=== PATIENT | female | born 1995 | race Caucasian/White ===

== ENCOUNTER 2019-05-06 10:04 | Emergency (ER) | payer OTHER ==
[2019-05-06 10:11] VITALS: BP 121/86; PULSE 91; TEMP 99; BMI 35.4
--- NOTE | 2019-05-06 10:41 | PDOC ---
History of Present Illness - General Chief Complaint: Pain Stated Complaint: LT LEG PAIN Past History - Past Medical History Allergies/Adverse Reactions: Allergies Allergy/AdvReac Type Severity Reaction Status Date / Time No Known Allergies Allergy Verified 05/06/19 10:10 Home Medications: Ambulatory Orders NK [No Known Home Medication] 05/06/19 Asthma: No Cancer: No Cardiac Disorders: No COPD: No Diabetes: Yes (gestational diabetes diet control) HTN: No Seizures: No Thyroid Disease: No - Psycho Social/Smoking Cessation Hx Smoking History: Never smoked Have you smoked in the past 12 months: No Hx Alcohol Use: No Drug/Substance Use Hx: No Hx Substance Use Treatment: No *Physical Exam - Vital Signs Last Vital Signs Temp Pulse Resp BP Pulse Ox 99.0 F 91 H 18 121/86 99 05/06/19 10:08 05/06/19 10:08 05/06/19 10:08 05/06/19 10:08 05/06/19 10:08 Discharge - Follow up/Referral Referrals: Beth Pierre MD [Primary Care Provider] - - Patient Discharge Instructions - Post Discharge Activity
--- NOTE | 2019-05-06 11:41 | PDOC ---
History of Present Illness - General Chief Complaint: Pain Stated Complaint: LT LEG PAIN History Source: Patient Exam Limitations: No Limitations - History of Present Illness Initial Comments: 05/06/19 13:27 HPI: 23-year-old female who is approximately 8-1/2 months with her second child is complaining of some left leg pain. She states it started yesterday. She did not have this with her first . She did not have any recent trauma. She said it was better yesterday and today became worse. Chief Compliant: Left leg pain Pain location: Left leg pain from the groin down Duration: Modifying factors: Quality: Radiating: Severity: Time: PMH: Denies FH: Pt has not recently traveled outside the country in the last 30 days. Pt has not been in contact with people who have traveled out of the country, in contact with people who have been ill with fever, n, v, d. SH: smoking use: NONE illicit drug use: NONE alcohol use: NONE employment/educational status: sexual history:current PSH: Denies Past History - Past Medical History Allergies/Adverse Reactions: Allergies Allergy/AdvReac Type Severity Reaction Status Date / Time No Known Allergies Allergy Verified 05/06/19 10:10 Home Medications: Ambulatory Orders Vitamins (Sjr) - 1 tab PO DAILY 05/06/19 Asthma: No Cancer: No Cardiac Disorders: No COPD: No Diabetes: Yes (gestational diabetes diet control) HTN: No Seizures: No Thyroid Disease: No - Psycho Social/Smoking Cessation Hx Smoking History: Never smoked Have you smoked in the past 12 months: No Hx Alcohol Use: No Drug/Substance Use Hx: No Hx Substance Use Treatment: No Review of Systems - Review of Systems Able to Perform ROS?: Yes Comments:: 05/06/19 13:28 General statement: Left leg pain started yesterday Hematology: neg history of bleeding/blood thinners Skin: Neg for lesions, rash, bruising. HEENT: Neg symptoms Respiratory: Neg SOB or difficulty in breathing Cardiac: Neg chest pain GI: Neg pain, n/v : Neg problems on voiding MS: Neg for joint pain/stiffness, + edema bilateral lower edema Neuro: Neg for LOC, weakness, Endocrine: Neg for excess thirst/hunger, cold/heat intolerance, excess sweating Allergies: Neg for allergies *Physical Exam - Vital Signs Last Vital Signs Temp Pulse Resp BP Pulse Ox 99.0 F 91 H 18 121/86 99 05/06/19 10:08 05/06/19 10:08 05/06/19 10:08 05/06/19 10:08 05/06/19 10:08 - Physical Exam Comments: 05/06/19 13:29 General Appearance: This well appearing 23-year-old female V/S: hemodynamically stable, afebrile Skin: WNL of pt's skin color, no signs of pallor, mottling, cyanosis Head:symmetrical Eyes: EOM's intact, PERRLA Ears: denies pain Nose: patent Throat: lips, teeth, gums, tongue, buccal mucos pink and moist Lungs: Chest symmetry equal. Cap refill <3 seconds. Lung sounds clear Cardiac: PMI at R 4MCL space, pos S1 and S2, regular rate. Abdomen: nontender : Not observed Muscularskeletal: Gait steady, ambulated in to ER, no edema +PMS with complaint of right groin pain without any obvious deformity Neuro: AAOx3, cognitively intact, speech clear and appropriate. ED Treatment Course - RADIOLOGY Radiology Studies Ordered: Category Date Time Status DUPLEX VASCUL US-1 LEG [US] Stat Ultrasound 05/06/19 10:41 Completed Medical Decision Making - Medical Decision Making 05/06/19 13:35 Patient was seen and examined. Patient is not showing any signs of calf pain. Duplex is negative for any DVT. She did ambulate in here although she is sitting in a wheelchair at this time. She denies having any of the symptoms her last . I have suggested that she follows back up with her TAP AND DIE MAKER TECHNICIAN in the morning. This is probably due to a ligamentous strain from her . Discharge - Discharge Information Problems reviewed: Yes Clinical Impression/Diagnosis: Leg swelling in Qualifiers: Trimester: third trimester Qualified Code(s): O12.03 - Gestational edema, third trimester Condition: Fair Disposition: HOME - Admission No - Follow up/Referral Referrals: Beth Pierre MD [Primary Care Provider] - - Patient Discharge Instructions Additional Instructions: Discharge instruction -leg swelling and pain with third trimester -elevate -ice -call your FUNERAL LOCATION MANAGER tomorrow -tylenol - Post Discharge Activity
== END 2019-05-06 11:51 | disposition home or self-care (01) ==
LOC: JERFT 10:04
DX: O26.893 Other specified pregnancy related conditions, third trimester (principal); O12.03 Gestational edema, third trimester; O24.410 Gestational diabetes mellitus in pregnancy, diet controlled; Z3A.33 33 weeks gestation of pregnancy
CPT/HCPCS: 93971-TC; 99281-25

== ENCOUNTER 2019-06-05 08:50 | Inpatient (IN) | payer OTHER ==
[2019-06-05 10:27] LABS: RETICULOCYTES 2.64 % (0.5-1.5)
[2019-06-05] MEDS ORDERED: CITRIC ACID/SODIUM CITRATE 30 ML UNIT-DOSE CUP PO ONE (10:37)
--- NOTE | 2019-06-05 10:43 | HP ---
Past Medical History - Primary Care Physician PCP:: Bam Berman - Admission Chief Complaint: 38 weeks, PIH, previous c/s , request of repeat c/s History of Present Illness: 23 yo f g 2 p1001 38 weeks, with one previous c/s , elevated BP with proteinuria admitted for repeat c/s, risks associated with repeat c/s discussed , no headache, no blurred vision . BP 140/88 History Source: Patient Limitations to Obtaining History: No Limitations - Past Medical History Gastrointestinal: Yes: Constipation. No: GERD ...: 2 ...Para: 1 ...EDC by Charis: 06/19/19 Heme/Onc: Yes: Anemia Endocrine: Yes: Other (h/o GDM on diet control). No: Diabetes Mellitus, Hyperthyroidism, Hypothyroidism - Past Surgical History Past Surgical History: Yes: None, Hx Myomectomy: No Hx Transabdominal Cerclage: No - Smoking History Smoking history: Never smoked Have you smoked in the past 12 months: No - Alcohol/Substance Use Hx Alcohol Use: No History of Substance Use: reports: None - Social History History of Recent Travel: No Home Medications - Allergies Allergies/Adverse Reactions: Allergies Allergy/AdvReac Type Severity Reaction Status Date / Time No Known Allergies Allergy Verified 06/05/19 10:33 - Home Medications Home Medications: Ambulatory Orders Vitamins (Sjr) - 1 tab PO DAILY 05/06/19 Review of Systems - Review of Systems Constitutional: reports: No Symptoms Eyes: reports: No Symptoms HENT: reports: No Symptoms Neck: reports: No Symptoms Cardiovascular: reports: No Symptoms Respiratory: reports: No Symptoms Gastrointestinal: reports: No Symptoms Genitourinary: reports: No Symptoms Breasts: reports: No Symptoms Reported Musculoskeletal: reports: No Symptoms Integumentary: reports: No Symptoms Neurological: reports: No Symptoms Endocrine: reports: No Symptoms Hematology/Lymphatic: reports: No Symptoms Psychiatric: reports: No Symptoms Physical Exam - Maternity Constitutional: Yes: Well Nourished, No Distress, Calm, Obese Eyes: Yes: WNL, Conjunctiva Clear, EOM Intact HENT: Yes: WNL, Atraumatic, Normocephalic Neck: Yes: WNL, Supple, Trachea Midline Cardiovascular: Yes: WNL, Regular Rate and Rhythm Breast(s): Yes: WNL - Abdominal Exam/OB Fundal Height: 38 Number of Fetuses: Single Presentation: Vertex Contractions: No Intensity: Unaware Monitor Mode: External Heart Rate Location: [facility] Category: I Accelerations: Non-Uniform Decelerations: None - Vaginal Exam/OB Vaginal Bleediing: No Speculum Exam: No Dilatation (cm): closed Effacement (%): 0 Presentation: Vertex/Position Station: -3 - Physical Exam Musculoskeletal: Yes: WNL Edema: Yes Edema: LLE: 1+, RLE: 1+ Deep Tendon Reflex Grade: Normal +2 ...Motor Strength: WNL Psychiatric: Yes: WNL - Labs Lab Results: CBC, BMP 06/05/19 09:35 Hemorrhage Risk Assessment - Risk Factors Medium Risk Factors: Yes: Prior , uterine surgery,or multiple laparotomies Risk Score: 1 Risk Level: Medium Risk Problem List - Problems (1) with 38 completed weeks gestation Code(s): Z3A.38 - 38 WEEKS GESTATION OF (2) Previous section complicating Code(s): O34.219 - MATERNAL CARE FOR UNSP TYPE SCAR FROM PREVIOUS DEL (3) PIH ( induced hypertension) Code(s): O13.9 - GESTATIONAL HTN W/O SIGNIFICANT PROTEINURIA, UNSP TRIMESTER Qualifiers: Trimester: third trimester Qualified Code(s): O13.3 - Gestational [ -induced] hypertension without significant proteinuria, third trimester (4) PIH ( induced hypertension), antepartum Code(s): O13.9 - GESTATIONAL HTN W/O SIGNIFICANT PROTEINURIA, UNSP TRIMESTER (5) PIH ( induced hypertension), antepartum Code(s): O13.9 - GESTATIONAL HTN W/O SIGNIFICANT PROTEINURIA, UNSP TRIMESTER Assessment/Plan repeat c/s , risks discussed monitor BP
[2019-06-05] MEDS ORDERED: ELECTROLYTE-148 SOLN 1,000 ML IV SCH (10:45)
[2019-06-05 10:55] LABS: URIC ACID 3.9 mg/dL (2.6-7.2)
[2019-06-05 11:05] VITALS: BMI 38.7
[2019-06-05] MEDS ORDERED: morphine SULFATE/PF 0.5 MG/ML (2cc Syringe - QUVA) ONE (13:35)
[2019-06-05] MEDS ORDERED: oxyCODONE HCL 5 MG TABLET PO PRN (13:37)
[2019-06-05] MEDS ORDERED: BENZOCAINE 28 GM HEMORRHOIDAL OINTMENT PR PRN (13:37)
[2019-06-05] MEDS ORDERED: BENZOCAINE 20% 57 GM BOTTLE TP PRN (13:37)
[2019-06-05] MEDS ORDERED: METHYLERGONOVINE MALEATE 0.2 MG/1 ML AMP IM PRN (13:37)
[2019-06-05] MEDS ORDERED: diphenhydrAMINE HCL 25 MG CAPSULE (FP) PO PRN (13:37)
[2019-06-05] MEDS ORDERED: WITCH HAZEL 50% (TUCKS) 40 PAD/JAR PAD TP PRN (13:37)
[2019-06-05] MEDS ORDERED: ceFAZolin SODIUM 1 GM VIAL ONE (13:44)
[2019-06-05] MEDS ORDERED: OXYTOCIN 20 UNITS in 0.9% NS 20 UNIT/1,000 ML INFUS.BAG IV SCH (13:45)
[2019-06-05] MEDS ORDERED: DEXTROSE 5%-LACTATED RINGERS 1,000 ML IV SCH (13:45)
[2019-06-05] MEDS ORDERED: OXYTOCIN 10 UNITS/ML VIAL ONE ×2 (13:51→14:53)
[2019-06-05] MEDS ORDERED: morphine SULFATE/PF 0.5 MG/ML (2cc Syringe - QUVA) EP ONE (15:08)
[2019-06-05] MEDS ORDERED: ONDANSETRON 4 MG/2 ML VIAL IVPUSH PRN (15:08)
[2019-06-05] MEDS: IBUPROFEN 800 MG/8 ML IJ IVPB PRN (18:17)
--- NOTE | 2019-06-05 21:12 | OP ---
Operative Note - Note: Operative Date: 06/05/19 Pre-Operative Diagnosis: 38 weeks, PIH, previous c/s Operation: repeat LST c/s Findings: live baby 04/09 . ROT, cord around neck once Surgeon: Bam eBrman Anesthesiologist/BLIND HOOKER: Carol Otoole Anesthesia: Spinal Specimens Removed: placenta Estimated Blood Loss (mls): 500 Drains & Tubes with Location: carranza Blood Volume Replaced (mls): 0 Operative Report Dictated: Yes
[2019-06-05] MEDS: CEFAZOLIN 1 GM/D5W 1 GM/50 ML BAG IVPB SCH (21:24)
[2019-06-06] MEDS: LABETALOL HCL 200 MG TABLET (FP) PO SCH ×3 (03:02→21:16)
[2019-06-06] MEDS: CEFAZOLIN 1 GM/D5W 1 GM/50 ML BAG IVPB SCH (05:11)
[2019-06-06] MEDS: IBUPROFEN 800 MG/8 ML IJ IVPB PRN (05:50)
[2019-06-06 07:18] LABS: BASO % 0.2 % (0-2.0); EOS % 0.2 % (0-4.5); HEMATOCRIT 34.9 % (32.4-45.2); HEMOGLOBIN 12.1 GM/dL (10.7-15.3); LYMPH % 9.8 % (8-40); MCHC 34.7 g/dl (32.0-36.0); MEAN CELL VOLUME 83.7 fl (80-96); MEAN PLT VOLUME 9.4 fl (7.5-11.1); MONO % 5.6 % (3.8-10.2); NEUT % 84.2 % (42.8-82.8); PLATELET COUNT 172 K/MM3 (134-434); RBC 4.17 M/mm3 (3.60-5.2); WHITE BLOOD COUNT 15.4 K/mm3 (4.0-10.0)
--- NOTE | 2019-06-06 07:58 | PN ---
Post Progress Note - Subjective Subjective: no c/o headache pain scale 6-7/10 not voided since carranza is taken out c/o pruritis Post Day: 1 Type of Delivery: Repeat C/S Vital Signs: Vital Signs Temperature 97.5 F L 06/06/19 06:00 Pulse Rate 87 06/06/19 06:00 Respiratory Rate 18 06/06/19 06:00 Blood Pressure 136/87 06/06/19 06:00 O2 Sat by Pulse Oximetry (%) 100 06/05/19 15:45 Selected Entries 06/05/19 06/05/19 06/06/19 17:44 21:47 02:00 Blood Pressure 145/99 138/85 152/99 Laboratory Tests 06/06/19 05:55 POC Glucometer 77 Breast Exam: Yes: Soft, Other (bottle feeding ). No: Engorged Uterus: Yes: Fundus Firm, Fundus below umbilicus, Non-tender Incision: Yes: Dressing dry and intact. No: Oozing Abdomen/GI: Yes: Abdomen soft (bs active ), Passing flatus, Tolerating PO ( clear fluids ). No: Abdominal Distention, Tender Lochia: Yes: Rubra Lochia, amount: Moderate Extremities: Yes: Calves non-tender, Edema (puffiness of face ) Perineum: Yes: Intact Activity: Other (not oob yet , scd in situ ) - Labs Labs: CBC WBC 15.4 K/mm3 (4.0-10.0) H 06/06/19 07:10 RBC 4.17 M/mm3 (3.60-5.2) 06/06/19 07:10 Hgb 12.1 GM/dL (10.7-15.3) 06/06/19 07:10 Hct 34.9 % (32.4-45.2) 06/06/19 07:10 MCV 83.7 fl (80-96) 06/06/19 07:10 MCH 29.0 pg (25.7-33.7) 06/06/19 07:10 MCHC 34.7 g/dl (32.0-36.0) 06/06/19 07:10 RDW 13.0 % (11.6-15.6) 06/06/19 07:10 Plt Count 172 K/MM3 (134-434) 06/06/19 07:10 MPV 9.4 fl (7.5-11.1) 06/06/19 07:10 Absolute Neuts (auto) 13.0 K/mm3 (1.5-8.0) H 06/06/19 07:10 Neutrophils % 84.2 % (42.8-82.8) H D 06/06/19 07:10 Lymphocytes % 9.8 % (8-40) D 06/06/19 07:10 Monocytes % 5.6 % (3.8-10.2) 06/06/19 07:10 Eosinophils % 0.2 % (0-4.5) 06/06/19 07:10 Basophils % 0.2 % (0-2.0) 06/06/19 07:10 Nucleated RBC % 0 % (0-0) 06/06/19 07:10 Retic Count 2.64 % (0.5-1.5) H D 06/05/19 09:35 Haptoglobin 193 mg/dL (34-200) 06/05/19 09:35 Laboratory Tests 06/06/19 05:55 POC Glucometer 77 Other Findings, Remarks: i/o 1600/3800 RS ; CTA Problem List - Problems (1) Status post section routine follow-up Code(s): Z39.2 - ENCOUNTER FOR ROUTINE FOLLOW-UP; Z98.891 - HISTORY OF UTERINE SCAR FROM PREVIOUS SURGERY (2) PIH ( induced hypertension) Code(s): O13.9 - GESTATIONAL HTN W/O SIGNIFICANT PROTEINURIA, UNSP TRIMESTER Qualifiers: Trimester: third trimester Qualified Code(s): O13.3 - Gestational [ -induced] hypertension without significant proteinuria, third trimester (3) Gestational diabetes mellitus (GDM) in childbirth, diet controlled Code(s): O24.420 - GESTATIONAL DIABETES MELLITUS IN CHILDBIRTH, DIET CONTROLLED Assessment/Plan stable , pt on po labetalol 200 mg q 8h prn , she received one dose at 3.[address] care advance diet encourage deep breathing , ambulation , po fluids
--- NOTE | 2019-06-06 09:17 | PN ---
Progress Note (short form) - Note Progress Note: 23F s/p repeat C/S under duramorph spinal. No new c/o. Vital Signs Temperature 97.5 F L 06/06/19 06:00 Pulse Rate 87 06/06/19 06:00 Respiratory Rate 18 06/06/19 08:00 Blood Pressure 136/87 06/06/19 06:00 O2 Sat by Pulse Oximetry (%) 100 06/05/19 15:45 sitting, NAD - No apparent anesthesia complications
[2019-06-06] MEDS: ENOXAPARIN NA (PORCINE) 40 MG/0.4 ML DISP.SYRIN SQ SCH (09:24)
[2019-06-06] MEDS ORDERED: BISACODYL 10 MG SUPP.RECT PR PRN (13:37)
[2019-06-06] MEDS: SIMETHICONE 80 MG TAB.CHEW (FP) PO PRN (15:10)
[2019-06-06] MEDS: IBUPROFEN 600 MG TABLET (FP) PO PRN (15:10)
[2019-06-06] MEDS: oxyCODONE HCL 5 MG TABLET PO PRN ×2 (15:11→23:51)
--- NOTE | 2019-06-06 15:23 | SURG ---
Surgery Night Shift Supervisor Note Night Shift Supervisor: Christine Vieira PA-C Date of Service: 06/05/19 Diagnosis: 38 weeks, PIH, previous c/s Procedure: repeat LST c/s I was present for the entirety of the operative procedure. For further detail, please refer to operative report. Visit type - Case Type Case Type: Scheduled - Emergency Emergency Visit: Yes ED Registration Date: 06/05/19 Care time: The patient presented to the Emergency Department on the above date and was hospitalized for further evaluation of their emergent condition. - New patient This patient is new to me today: Yes Date on this admission: 06/06/19
--- NOTE | 2019-06-06 20:59 | OP ---
DATE OF OPERATION: 06/05/2019 PREOPERATIVE DIAGNOSIS: 38 weeks, induced hypertension, previous section. Request repeat section. POSTOPERATIVE DIAGNOSIS: 38 weeks, induced hypertension, previous section. Request repeat section. PROCEDURE: Repeat low segment transverse section. SURGEON: Neyda Berman M.D. GROCERY STORE BAGGER: Rip Mei ANESTHESIA: Spinal. ANESTHESIOLOGIST: Carol Otoole D.O. ESTIMATED BLOOD LOSS: 500 mL. FINDINGS: Live baby ROT position, cord around the neck, clear fluid, Apgars 9 and 9. OPERATION: Patient was taken to operating room with adequate spinal anesthesia. Abdomen and perineum were prepped and draped. Pfannenstiel abdominal skin incision was made. Abdominal wall was cut layer by layer until the peritoneum was exposed and incised. Upon entering the abdominal cavity, the lower uterine segment was identified, and uterovesical fold of the peritoneum was established. The bladder was pushed down. Then with the lower blade of the Annette retractor in the pelvis, a low transverse uterine incision was made. The incision extended laterally with bandage scissors. Amniotic sac was entered. Clear fluid. Head delivered. Nasopharynx was suctioned. Cord around the neck x1 reduced. A live baby was delivered without any difficulty. Apgars 9 and 9. Placenta was delivered manually. Uterine cavity was cleared of all remaining tissue. Uterine incision was closed in 2 layers, the 1st layer with 0 Biosyn continuous suture, the 2nd layer with 0 Biosyn imbricating the 1st layer. Bladder flap was closed with 0 Biosyn continuous suture. Both tubes and ovaries were checked and were normal. No active bleeding was seen. All the lap, sponge, and instrument counts were correct. Peritoneum was closed with 0 Biosyn continuous suture. Muscles were brought together interrupted suture with 0 Biosyn. Fascia was closed with 0 Biosyn continuous suture. Subcutaneous fat with interrupted sutures 0 Biosyn, and the skin was closed with 3-0 Biosyn subcuticular continuous suture. The patient tolerated the procedure well and left the OR in good condition. NEYDA BERMAN M.D. [id number]
[2019-06-07] MEDS: LABETALOL HCL 200 MG TABLET (FP) PO SCH ×3 (02:17→18:21)
[2019-06-07] MEDS: SIMETHICONE 80 MG TAB.CHEW (FP) PO PRN ×3 (04:20→16:50)
[2019-06-07] MEDS: oxyCODONE HCL 5 MG TABLET PO PRN ×2 (08:21→16:47)
[2019-06-07] MEDS: IBUPROFEN 600 MG TABLET (FP) PO PRN ×2 (08:21→16:49)
--- NOTE | 2019-06-07 09:16 | PN ---
Post Progress Note - Subjective Subjective: Pain controlled. Voiding freely. Ambulating Post Day: 2 Type of Delivery: Repeat C/S Vital Signs: Vital Signs Temperature 98.7 F 06/07/19 05:32 Pulse Rate 105 H 06/07/19 05:32 Respiratory Rate 18 06/07/19 05:32 Blood Pressure 148/96 06/07/19 05:32 O2 Sat by Pulse Oximetry (%) 100 06/06/19 20:54 Uterus: Yes: Fundus below umbilicus Incision: Yes: Dressing dry and intact Abdomen/GI: Yes: Abdomen soft, Tolerating PO Lochia: Yes: Rubra Lochia, amount: Small Extremities: Yes: Calves non-tender Perineum: Yes: Intact Activity: Ambulating - Labs Labs: CBC WBC 15.4 K/mm3 (4.0-10.0) H 06/06/19 07:10 RBC 4.17 M/mm3 (3.60-5.2) 06/06/19 07:10 Hgb 12.1 GM/dL (10.7-15.3) 06/06/19 07:10 Hct 34.9 % (32.4-45.2) 06/06/19 07:10 MCV 83.7 fl (80-96) 06/06/19 07:10 MCH 29.0 pg (25.7-33.7) 06/06/19 07:10 MCHC 34.7 g/dl (32.0-36.0) 06/06/19 07:10 RDW 13.0 % (11.6-15.6) 06/06/19 07:10 Plt Count 172 K/MM3 (134-434) 06/06/19 07:10 MPV 9.4 fl (7.5-11.1) 06/06/19 07:10 Absolute Neuts (auto) 13.0 K/mm3 (1.5-8.0) H 06/06/19 07:10 Neutrophils % 84.2 % (42.8-82.8) H D 06/06/19 07:10 Lymphocytes % 9.8 % (8-40) D 06/06/19 07:10 Monocytes % 5.6 % (3.8-10.2) 06/06/19 07:10 Eosinophils % 0.2 % (0-4.5) 06/06/19 07:10 Basophils % 0.2 % (0-2.0) 06/06/19 07:10 Nucleated RBC % 0 % (0-0) 06/06/19 07:10 Retic Count 2.64 % (0.5-1.5) H D 06/05/19 09:35 Haptoglobin 193 mg/dL (34-200) 06/05/19 09:35 Assessment/Plan 23yo s/p RLTCS, POD#2 Routine PP care Labs reviewed OOB, ambulate BPs stable D/C to home by POD#4 Katherin Vicente MD
[2019-06-07] MEDS: ENOXAPARIN NA (PORCINE) 40 MG/0.4 ML DISP.SYRIN SQ SCH (10:38)
[2019-06-07] MEDS ORDERED: SENNOSIDES/DOCUSATE COMBO (SENNA PLUS) TABLET (UD) PO PRN (22:00)
[2019-06-08] MEDS: SIMETHICONE 80 MG TAB.CHEW (FP) PO PRN ×2 (00:33→09:49)
[2019-06-08] MEDS: IBUPROFEN 600 MG TABLET (FP) PO PRN ×2 (00:33→09:49)
[2019-06-08] MEDS: oxyCODONE HCL 5 MG TABLET PO PRN ×2 (00:33→09:49)
[2019-06-08] MEDS: LABETALOL HCL 200 MG TABLET (FP) PO SCH ×2 (02:20→11:30)
[2019-06-08 07:27] LABS: BASO % 0.3 % (0-2.0); EOS % 5.6 % (0-4.5); HEMATOCRIT 34.4 % (32.4-45.2); HEMOGLOBIN 11.8 GM/dL (10.7-15.3); LYMPH % 23.6 % (8-40); MCH 29.3 pg (25.7-33.7); MCHC 34.2 g/dl (32.0-36.0); MEAN CELL VOLUME 85.5 fl (80-96); MEAN PLT VOLUME 9.3 fl (7.5-11.1); MONO % 8.5 % (3.8-10.2); PLATELET COUNT 207 K/MM3 (134-434); RBC 4.03 M/mm3 (3.60-5.2); RDW 13.3 % (11.6-15.6); WHITE BLOOD COUNT 11.8 K/mm3 (4.0-10.0)
--- NOTE | 2019-06-08 08:26 | PN ---
Progress Note (short form) - Note Progress Note: pod 3 , s/p repeat c/s, PIH no headache, no blurred vision , ambulating Last Vital Signs Temp Pulse Resp BP Pulse Ox 97.9 F 101 H 18 143/94 100 06/07/19 21:49 06/08/19 02:00 06/07/19 21:49 06/08/19 06:00 06/06/19 20:54 CBC, BMP 06/08/19 06:55 abdomen soft, no distension , no cva incision dry, clean no calf tenderness impression pod 3, HTN plan ambulate , renal consult for HTN Problem List - Problems (1) with 38 completed weeks gestation Code(s): Z3A.38 - 38 WEEKS GESTATION OF (2) Previous section complicating Code(s): O34.219 - MATERNAL CARE FOR UNSP TYPE SCAR FROM PREVIOUS DEL (3) PIH ( induced hypertension) Code(s): O13.9 - GESTATIONAL HTN W/O SIGNIFICANT PROTEINURIA, UNSP TRIMESTER Qualifiers: Trimester: third trimester Qualified Code(s): O13.3 - Gestational [ -induced] hypertension without significant proteinuria, third trimester (4) PIH ( induced hypertension), antepartum Code(s): O13.9 - GESTATIONAL HTN W/O SIGNIFICANT PROTEINURIA, UNSP TRIMESTER (5) PIH ( induced hypertension), antepartum Code(s): O13.9 - GESTATIONAL HTN W/O SIGNIFICANT PROTEINURIA, UNSP TRIMESTER
[2019-06-08] MEDS: ENOXAPARIN NA (PORCINE) 40 MG/0.4 ML DISP.SYRIN SQ SCH (09:46)
--- NOTE | 2019-06-08 12:59 | CONSULT ---
Consult - text type - Consultation Consultation Note: Renal consult for hypertension This is a 23 year old woman with no significant past medical history who presented at 38 weeks gestation with elevated blood pressure and proteinuria now s/p with hypertension. PMhx: as above Allergies: NKDA Family Hx: NC Social Hx: No T/A/D ROS: as per HPI, all other pertinent ros negative Home Medications Medication Instructions Recorded Ferrous Sulfate 325 mg PO DAILY 06/05/19 Pnv No.95/Ferrous Fum/Folic AC 1 each PO DAILY 06/05/19 [ Vitamin Tablet] Vital Signs Temperature 98.2 F 06/08/19 11:30 Pulse Rate 88 06/08/19 11:30 Respiratory Rate 18 06/08/19 11:30 Blood Pressure 138/84 06/08/19 11:30 O2 Sat by Pulse Oximetry (%) 100 06/06/19 20:54 Selected Entries 06/07/19 06/07/19 06/08/19 17:40 21:49 02:00 Blood Pressure 145/90 141/85 134/82 06/08/19 06/08/19 06:00 11:30 Blood Pressure 143/94 138/84 Intake & Output 06/05/19 06/06/19 06/07/19 06/08/19 23:59 23:59 23:59 23:59 Intake Total 500 1900 Output Total 1900 5150 Balance -1400 -3250 Weight 96.162 kg NAD CBC, BMP 06/08/19 06:55 Laboratory Tests 06/01/19 06/03/19 09:00 10:30 Potassium 3.9 BUN 10.2 Creatinine 0.5 L Ur Total Protein 24 Hr 722 H Current Medications Benzocaine (Americaine 20% Morgan -) 1 spray TP PRN PRN PRN Reason: Pain - Topical Benzocaine (Americaine Ointment -) 1 applic NM PRN PRN PRN Reason: Pain - Topical Bisacodyl (Dulcolax Suppository -) 10 mg NM PRN PRN PRN Reason: CONSTIPATION Diphenhydramine HCl (Benadryl -) 25 mg PO Q8H PRN PRN Reason: FOR ITCHING Diphenhydramine HCl (Benadryl Injection -) 25 mg IVPUSH Q4H PRN PRN Reason: Pruritis Enoxaparin Sodium (Lovenox -) 40 mg SQ DAILY [facility] Last Admin: 06/08/19 09:46 Dose: 40 mg Parenteral Electrolytes (Plasma-Lyte 148 -) 1,000 mls @ 125 mls[facility] Last Admin: 06/05/19 10:00 Dose: 125 mls/hr Dextrose/Lactated Ringer's (D5-Lr -) 1,000 mls @ 125 mls[facility]hr [facility] Oxytocin/Sodium Chloride (Normal Saline+20 Units Oxytocin -) 20 unit in 1,000 mls @ 125 mls[facility]hr [facility] Last Admin: 06/05/19 15:00 Dose: 125 mls/hr Ibuprofen (Motrin -) 600 mg PO Q4H PRN PRN Reason: PAIN LEVEL 1 - 3 Last Admin: 06/08/19 09:49 Dose: 600 mg Ibuprofen (Caldolor Injection -) 800 mg IVPB Q6H PRN PRN Reason: PAIN > 5 if PO not effective. Last Admin: 06/06/19 05:50 Dose: 800 mg Labetalol HCl (Normodyne -) 200 mg PO Q8H [facility] Last Admin: 06/08/19 11:30 Dose: 200 mg Methylergonovine Maleate (Methergine Injection -) 0.2 mg IM Q4H PRN PRN Reason: EXCESSIVE BLEEDING Ondansetron HCl (Zofran Injection) 4 mg IVPUSH Q4H PRN PRN Reason: NAUSEA Oxycodone HCl (Roxicodone -) 5 mg PO Q4H PRN PRN Reason: PAIN LEVEL 4 - 6 Last Admin: 06/08/19 09:49 Dose: 5 mg Oxycodone HCl (Roxicodone -) 10 mg PO Q4H PRN PRN Reason: PAIN LEVEL 7 - 10 Last Admin: 06/07/19 04:20 Dose: 10 mg Senna/Docusate Sodium (Pericolace -) 2 tablet PO HS PRN PRN Reason: CONSTIPATION Simethicone (Mylicon -) 80 mg PO Q4H PRN PRN Reason: GAS Last Admin: 06/08/19 09:49 Dose: 80 mg Witch Meenakshi/Glycerin (Tucks Pads -) 1 pad TP PRN PRN PRN Reason: Pain - Topical 23 year old woman with no significant past medical history who presented at 38 weeks gestation with elevated blood pressure and proteinuria now s/p with hypertension. 1. hypertension 2. Preeclampsia 3. 38 weeks gestation s/p Recorded BP values slightly improved change Labetalol to 200gm Q6h PRN for SBP > 150 or DBP > 90 Pain control with an attempt to minimize NSAID use Low salt diet Trend BP over the next 24 hours Thank you Reinier Ballard DO
[2019-06-08] MEDS: LABETALOL HCL 200 MG TABLET (FP) PO PRN (21:51)
[2019-06-09] MEDS: ACETAMINOPHEN 325 MG TABLET (FP) PO PRN ×2 (00:43→09:08)
[2019-06-09] MEDS: LABETALOL HCL 200 MG TABLET (FP) PO PRN (09:00)
[2019-06-09] MEDS: ENOXAPARIN NA (PORCINE) 40 MG/0.4 ML DISP.SYRIN SQ SCH (09:07)
[2019-06-09] MEDS: IBUPROFEN 600 MG TABLET (FP) PO PRN (09:07)
--- NOTE | 2019-06-09 09:17 | PN ---
Progress Note (short form) - Note Progress Note: Renal follow up for hypertension Seen and examined at the bedside no acute complaints no dizziness, chest pain, blurry vision, shortness of breath required labetalol twice overnight Vital Signs Temperature 98.2 F 06/09/19 05:30 Pulse Rate 86 06/09/19 05:30 Respiratory Rate 16 06/09/19 05:30 Blood Pressure 143/85 06/09/19 05:30 O2 Sat by Pulse Oximetry (%) 100 06/06/19 20:54 Intake & Output 06/06/19 06/07/19 06/08/19 06/09/19 23:59 23:59 23:59 23:59 Intake Total 1900 Output Total 5150 Balance -3250 NAD trace LE edema CBC, BMP 06/08/19 06:55 Current Medications Acetaminophen (Tylenol -) 650 mg PO Q4H PRN PRN Reason: PAIN LEVEL 4-10 Last Admin: 06/09/19 09:08 Dose: 650 mg Benzocaine (Americaine 20% [place] -) 1 spray TP PRN PRN PRN Reason: Pain - Topical Benzocaine (Americaine Ointment -) 1 applic OR PRN PRN PRN Reason: Pain - Topical Bisacodyl (Dulcolax Suppository -) 10 mg OR PRN PRN PRN Reason: CONSTIPATION Diphenhydramine HCl (Benadryl -) 25 mg PO Q8H PRN PRN Reason: FOR ITCHING Diphenhydramine HCl (Benadryl Injection -) 25 mg IVPUSH Q4H PRN PRN Reason: Pruritis Enoxaparin Sodium (Lovenox -) 40 mg SQ DAILY MAGALY Last Admin: 06/09/19 09:07 Dose: 40 mg Ibuprofen (Motrin -) 600 mg PO Q4H PRN PRN Reason: PAIN LEVEL 1 - 3 Last Admin: 06/09/19 09:07 Dose: 600 mg Ibuprofen (Caldolor Injection -) 800 mg IVPB Q6H PRN PRN Reason: PAIN > 5 if PO not effective. Last Admin: 06/06/19 05:50 Dose: 800 mg Labetalol HCl (Normodyne -) 200 mg PO Q6H PRN PRN Reason: HYPERTENSION Last Admin: 06/09/19 09:00 Dose: 200 mg Methylergonovine Maleate (Methergine Injection -) 0.2 mg IM Q4H PRN PRN Reason: EXCESSIVE BLEEDING Ondansetron HCl (Zofran Injection) 4 mg IVPUSH Q4H PRN PRN Reason: NAUSEA Senna/Docusate Sodium (Pericolace -) 2 tablet PO HS PRN PRN Reason: CONSTIPATION Last Admin: 06/08/19 21:48 Dose: 2 tablet Simethicone (Mylicon -) 80 mg PO Q4H PRN PRN Reason: GAS Last Admin: 06/08/19 09:49 Dose: 80 mg Witch Meenakshi/Glycerin (Tucks Pads -) 1 pad TP PRN PRN PRN Reason: Pain - Topical 23 year old woman with no significant past medical history who presented at 38 weeks gestation with elevated blood pressure and proteinuria now s/p with hypertension. 1. hypertension 2. Preeclampsia 3. 38 weeks gestation s/p BP is moderated by Labetalol and pt shows good response can be discharged home on Labetalol 200mg Q12h Will call in Rx to [facility] Symptoms of hypotension discussed with the patient asked to monitor BP twice a day at home office contact information provided, to follow up within 1 week for BP monitoring Thank you Reinier Ballard DO
[2019-06-09 10:35] VITALS: PULSE 79; TEMP 98.3
--- NOTE | 2019-06-09 11:17 | PN ---
Post Progress Note - Subjective Subjective: no c/o headache voiding without difficulty Post Day: 4 Type of Delivery: Repeat C/S Vital Signs: Vital Signs Temperature 98.3 F 06/09/19 09:00 Pulse Rate 79 06/09/19 09:00 Respiratory Rate 20 06/09/19 09:00 Blood Pressure 127/95 06/09/19 09:00 O2 Sat by Pulse Oximetry (%) 100 06/06/19 20:54 Breast Exam: Yes: Soft, Other (bottle feeding ). No: Engorged Uterus: Yes: Fundus Firm, Fundus below umbilicus Incision: Yes: Sutures intact. No: Redness, Oozing Abdomen/GI: Yes: Abdomen soft, Passing flatus, Tolerating PO (diet ). No: Abdominal Distention, Tender Lochia: Yes: Rubra Lochia, amount: Moderate Extremities: Yes: Calves non-tender Perineum: Yes: Intact Activity: Ambulating - Labs Labs: CBC WBC 11.8 K/mm3 (4.0-10.0) H 06/08/19 06:55 RBC 4.03 M/mm3 (3.60-5.2) 06/08/19 06:55 Hgb 11.8 GM/dL (10.7-15.3) 06/08/19 06:55 Hct 34.4 % (32.4-45.2) 06/08/19 06:55 MCV 85.5 fl (80-96) 06/08/19 06:55 MCH 29.3 pg (25.7-33.7) 06/08/19 06:55 MCHC 34.2 g/dl (32.0-36.0) 06/08/19 06:55 RDW 13.3 % (11.6-15.6) 06/08/19 06:55 Plt Count 207 K/MM3 (134-434) D 06/08/19 06:55 MPV 9.3 fl (7.5-11.1) 06/08/19 06:55 Absolute Neuts (auto) 7.3 K/mm3 (1.5-8.0) 06/08/19 06:55 Neutrophils % 62.0 % (42.8-82.8) D 06/08/19 06:55 Lymphocytes % 23.6 % (8-40) D 06/08/19 06:55 Monocytes % 8.5 % (3.8-10.2) 06/08/19 06:55 Eosinophils % 5.6 % (0-4.5) H D 06/08/19 06:55 Basophils % 0.3 % (0-2.0) 06/08/19 06:55 Nucleated RBC % 0 % (0-0) 06/08/19 06:55 Retic Count 2.64 % (0.5-1.5) H D 06/05/19 09:35 Haptoglobin 193 mg/dL (34-200) 06/05/19 09:35 Laboratory Tests 06/06/19 10:35 POC Glucometer 142 Problem List - Problems (1) Status post section routine follow-up Code(s): Z39.2 - ENCOUNTER FOR ROUTINE FOLLOW-UP; Z98.891 - HISTORY OF UTERINE SCAR FROM PREVIOUS SURGERY (2) PIH ( induced hypertension) Code(s): O13.9 - GESTATIONAL HTN W/O SIGNIFICANT PROTEINURIA, UNSP TRIMESTER Qualifiers: Trimester: third trimester Qualified Code(s): O13.3 - Gestational [ -induced] hypertension without significant proteinuria, third trimester (3) Gestational diabetes mellitus (GDM) in childbirth, diet controlled Code(s): O24.420 - GESTATIONAL DIABETES MELLITUS IN CHILDBIRTH, DIET CONTROLLED Assessment/Plan stable , pt on po labetalol 200 mg q 8h prn , she received one dose at 3.[address] care advance diet encourage deep breathing , ambulation , po fluids pt medically cleared by Dr Ballard for discahg & he ordered meds topharmacy pp instructions given discharge today
[2019-06-09 12:51] VITALS: BP 123/74
--- NOTE | 2019-06-13 16:41 | PATH ---
Surgical Pathology Report Patient Name: OZIEL BARAHONA [facility]. Rec. #: [id number] /Age/Gender: 1995 (Age: 23) / F Account: [id number] Location: [facility] OBS/[place] M[facility] Taken: 06/05/2019 Received: 06/06/2019 Reported: 06/13/2019 Physicians: Bam Berman M.D. Specimen(s) Received PLACENTA Clinical History At 38 weeks Previous for twins GDM, PIH Final Diagnosis PLACENTA, SECTION: 402 G THIRD TRIMESTER PLACENTA WITH TRIVASCULAR UMBILICAL CORD AND UNREMARKABLE PLACENTAL MEMBRANES. Electronically Signed Flora Almaraz M.D. Gross Description The specimen is received fresh labeled placenta and is a 402 gram, 17.5 x 16.5 x 2.4 cm. placenta with attached membranes and umbilical cord. The attached membranes are monsivais, translucent with focal opacities and insert marginally. The umbilical cord measures 37 cm. in length and averages 0.9 cm. in diameter. The cord inserts eccentrically, 5.5 cm. to the nearest margin. No true knots or strictures are identified. Cut surface of the umbilical cord reveals 3 vessels. The surface is redding-blue with minimal fibrin deposition and appropriate caliber vessels. The maternal surface is red-brown with focal defects. Sectioning reveals red-brown, spongy parenchyma. No lesions are identified. Integrity Manager sections are submitted in three cassettes as follows: 1- membrane rolls and umbilical cord; 2-3- full thickness sections of placenta. 06/11/2019 saudi06/11/2019
== END 2019-06-09 13:30 | disposition home or self-care (01) | DRG 540 ==
LOC: JLDR 08:50 → J3W 16:30
PROVIDERS: ADMIT Obstetrics & Gynecology; ATTEND Obstetrics & Gynecology
PROC: 10D00Z1 Extraction of Products of Conception, Low, Open Approach (ICD-10-PCS; principal; 2019-06-05)
DX: O34.211 Maternal care for low transverse scar from previous cesarean delivery (principal); N85.8 Other specified noninflammatory disorders of uterus; O13.4 Gestational [pregnancy-induced] hypertension without significant proteinuria, complicating childbirth; O14.94 Unspecified pre-eclampsia, complicating childbirth; O99.214 Obesity complicating childbirth; Z3A.38 38 weeks gestation of pregnancy; Z37.0 Single live birth
CPT/HCPCS: 36415; 82962; 82977; 83010; 84450; 84460; 84550; 85025; 85032; 85044; 88307-TC

== ENCOUNTER 2019-07-06 09:16 | Emergency (ER) | payer OTHER ==
[2019-07-06 09:33] VITALS: BP 102/42; PULSE 85; TEMP 98.3; BMI 33.6
--- NOTE | 2019-07-06 09:55 | PDOC ---
History of Present Illness - General Chief Complaint: Pain Stated Complaint: RT WRIST/HAND PAIN Time Seen by Provider: 07/06/19 09:39 History Source: Patient Exam Limitations: Clinical Condition - History of Present Illness Initial Comments: 07/06/19 09:50 Patient with no significant past medical history present with complaint of 2 weeks history of persistent right wrist pain without trauma or an injury. Patient reported increased pain to back of right wrist with mild swelling with increased use. Denies previous injury or trauma to wrist. Patient has not taken anything for pain Is this a multiple visit Asthma Patient?: No Timing/Duration: other (2 weeks) Past History - Past Medical History Allergies/Adverse Reactions: Allergies Allergy/AdvReac Type Severity Reaction Status Date / Time No Known Allergies Allergy Verified 07/06/19 09:28 Home Medications: Ambulatory Orders Ferrous Sulfate 325 mg PO DAILY 06/05/19 Pnv No.95/Ferrous Fum/Folic AC [ Vitamin Tablet] 1 each PO DAILY Acetaminophen [Tylenol .Regular Strength -] 500 mg PO Q4H PRN #30 tablet Ibuprofen [Motrin -] 600 mg PO Q4H PRN #30 tablet 06/09/19 Labetalol HCl [Normodyne -] 200 mg PO BID tablet 06/09/19 Naproxen 500 mg PO BID PRN #20 tablet 07/06/19 Asthma: No Cancer: No Cardiac Disorders: No COPD: No Diabetes: Yes (GESTATIONAL DIABETIC - DIET CONTROLLED) HTN: Yes Seizures: No Thyroid Disease: No - Psycho Social/Smoking Cessation Hx Smoking History: Never smoked Have you smoked in the past 12 months: No Hx Alcohol Use: No Drug/Substance Use Hx: No Hx Substance Use Treatment: No Review of Systems - Review of Systems Able to Perform ROS?: Yes Is the patient limited Telugu proficient: No Constitutional: No: Malaise, Weakness HEENTM: No: Symptoms Reported Respiratory: No: Symptoms reported Cardiac (ROS): No: Symptoms Reported Musculoskeletal: Yes: Symptoms Reported, See HPI, Joint Pain (right wrist), Joint Swelling (right wrist), Muscle Pain (right wrist pain) Integumentary: No: Symptoms Reported Neurological: No: Symptoms reported, Numbness, Paresthesia, Tingling All Other Systems: Reviewed and Negative *Physical Exam - Vital Signs Last Vital Signs Temp Pulse Resp BP Pulse Ox 98.3 F 85 18 102/42 L 100 07/06/19 09:29 07/06/19 09:29 07/06/19 09:29 07/06/19 09:29 07/06/19 09:29 - Physical Exam 07/06/19 09:52 GENERAL: Well developed, well nourished. Awake and alert. No acute distress. PULMONARY: No evidence of respiratory distress. MUSCULOSKELETAL : Mild tenderness to dorsal aspect of right wrist with mild swelling over right wrist. Full range of motion of right wrist. No tenderness to right hand or fingers. 5 out of 5 strength to right wrist. No bony deformities SKIN: Warm and dry. Normal capillary refill. No bruising or ecchymosis or erythema to right hand or wrist. NEUROLOGICAL: Alert, awake, appropriate. No motor deficits in the lower extremities. Gait is normal without ataxia. PSYCHIATRIC: Cooperative. Good eye contact. Appropriate mood and affect. General Appearance: Yes: Nourished, Appropriately Dressed, Mild Distress. No: Apparent Distress Procedures - Splinting Splint Location: Right: Wrist Pre-Proc Neuro Vasc Exam: normal Pre-Made Type: wrist support brace Splint Type: Yes: Wrist Post-Proc Neuro Vasc Exam: normal Chris Bandage: yes, 3" Sling: No Complications: No Post splint xray: No Good repositioning: Yes ED Treatment Course - RADIOLOGY Radiology Studies Ordered: Category Date Time Status WRIST W/HAND-RIGHT* [RAD] Stat Radiology 07/06/19 09:39 Stop Req Medical Decision Making - Medical Decision Making 07/06/19 09:50 Patient with no significant past medical history present with complaint of 2 weeks history of persistent right wrist pain without trauma or an injury. Patient reported increased pain to back of right wrist with mild swelling with increased use. Denies previous injury or trauma to wrist. Patient has not taken anything for pain Exam significant for mild tenderness to dorsal aspect of right wrist with mild swelling over right wrist. No visible deformity. Full range of motion of right wrist and hand. No tenderness to right hand or fingers. Symptoms likely with sprain from overuse. Patient with and cannot going for x-ray as she does not have anybody to watch child. Right wrist wrapped with Chris bandage and prefabricated wrist splint applied. Patient stable for discharge on naproxen as needed for pain with advised to do hot compress and orthopedics follow-up Discharge - Discharge Information Problems reviewed: Yes Clinical Impression/Diagnosis: Sprain of right wrist Qualifiers: Encounter type: initial encounter Qualified Code(s): S63.501A - Unspecified sprain of right wrist, initial encounter Condition: Stable Disposition: HOME - Admission No - Additional Discharge Information Prescriptions: Naproxen 500 mg PO BID PRN #20 tablet PRN Reason: wrist pain - Follow up/Referral Referrals: Brijesh Marquis MD [Staff Physician] - - Patient Discharge Instructions Patient Printed Discharge Instructions: DI for Wrist Sprain Additional Instructions: Use provided Chris wrap and wrist brace to support wrist. Take prescribed medication as needed for pain. Apply hot compress to wrist 2-3 times a day as needed for pain and swelling. Follow-up referred hand orthopedics if symptoms does not improve in 3 days - Post Discharge Activity
== END 2019-07-06 10:04 | disposition home or self-care (01) ==
LOC: JERFT 09:16
PROC: 2W3CX1Z Immobilization of Right Lower Arm using Splint (ICD-10-PCS; principal; 2019-07-06)
DX: S63.501A Unspecified sprain of right wrist, initial encounter (principal); X58.XXXA Exposure to other specified factors, initial encounter; Y93.89 Activity, other specified; Y92.89 Other specified places as the place of occurrence of the external cause; Y99.8 Other external cause status; Z86.32 Personal history of gestational diabetes
CPT/HCPCS: 29126; 99281-25

== ENCOUNTER 2019-08-22 22:20 | Emergency (ER) | payer OTHER ==
[2019-08-22 22:41] VITALS: BP 108/67; PULSE 83; TEMP 98.5; BMI 32.9
--- NOTE | 2019-08-23 00:12 | PDOC ---
History of Present Illness - General Chief Complaint: Cold Symptoms Stated Complaint: COLD SYMPTOMS Time Seen by Provider: 08/23/19 00:02 History Source: Patient Exam Limitations: No Limitations - History of Present Illness Initial Comments: 08/23/19 00:06 Patient is a 23-year-old female who presents to the ED with a cough and posttussive emesis for the last 1.5 weeks. She states other people in the house have similar symptoms. She denies any fevers or chills. She denies any throat pain or ear pain. She states the cough is keeping her up at night. She denies any past medical history or allergies to medications. Past History - Past Medical History Allergies/Adverse Reactions: Allergies Allergy/AdvReac Type Severity Reaction Status Date / Time No Known Allergies Allergy Verified 08/22/19 22:39 Home Medications: Ambulatory Orders Ferrous Sulfate 325 mg PO DAILY 06/05/19 Pnv No.95/Ferrous Fum/Folic AC [ Vitamin Tablet] 1 each PO DAILY Acetaminophen [Tylenol .Regular Strength -] 500 mg PO Q4H PRN #30 tablet Ibuprofen [Motrin -] 600 mg PO Q4H PRN #30 tablet 06/09/19 Labetalol HCl [Normodyne -] 200 mg PO BID tablet 06/09/19 Naproxen 500 mg PO BID PRN #20 tablet 07/06/19 Benzonatate [Tessalon Pearls -] 100 mg PO TID PRN #21 capsule 08/23/19 Asthma: No Cancer: No Cardiac Disorders: No COPD: No Diabetes: Yes (GESTATIONAL DIABETIC - DIET CONTROLLED) HTN: Yes Seizures: No Thyroid Disease: No - Psycho Social/Smoking Cessation Hx Smoking History: Never smoked Have you smoked in the past 12 months: No Hx Alcohol Use: No Drug/Substance Use Hx: No Hx Substance Use Treatment: No Review of Systems - Review of Systems Comments:: 08/23/19 00:06 - Review of Systems Able to Perform ROS?: Yes Constitutional: No: Fever, Chills, Loss of Appetite, Night Sweats, Weakness HEENTM: No: Eye Pain, Vision changes, Ear Pain, Throat Pain, Throat Swelling, Mouth Pain, Difficulty Swallowing Respiratory: No: Shortness of Breath, Wheezing, Sputum Production, + Cough Cardiac (ROS): No: Chest Pain, Chest Tightness, Palpitations, Irregular Heart Beat, Edema ABD/GI: No: Nausea, Vomiting, Abdominal Pain, Diarrhea Musculoskeletal: No: Muscle Pain, Back Pain, Joint Pain, Muscle Weakness, Neck Pain Integumentary: No: Lesions, Rash Neurological: No: Headache, Numbness, Tingling, Weakness, Speech Difficulties *Physical Exam - Vital Signs Last Vital Signs Temp Pulse Resp BP Pulse Ox 98.5 F 83 18 108/67 98 08/22/19 22:39 08/22/19 22:39 08/22/19 22:39 08/22/19 22:39 08/22/19 22:39 - Physical Exam 08/23/19 00:07 - Physical Exam General Appearance: Nourished, Appropriately Dressed, No Distress HEENT: EOMI, Normal Voice, No Pharyngeal Erythema, No Muffled/Hoarse voice, No Tonsillar Exudate, No Tonsillar Erythema, No Nasal Congestion, No Rhinorrhea, Hearing Grossly Normal, TMs Normal, No TM Bulging, No TM Dullness, No TM Erythema Neck: Supple, No Lymphadenopathy (R), No Lymphadenopathy (L), No Rigidity, No Decreased range of motion Respiratory/Chest: Lungs Clear, Normal Breath Sounds. No Respiratory Distress, No Accessory Muscle Use; no adventitious lung sounds appreciated, wet sounding cough appreciated without sputum production in the ED Cardiovascular: Regular Rhythm, Regular Rate, S1, S2 Gastrointestinal/Abdominal: Normal Bowel Sounds, Soft. Non-tender, No Guarding , No Rebound, No Rigidity Musculoskeletal: Normal Inspection. No Decreased Range of Motion Extremity: Normal Capillary Refill, Normal Inspection Integumentary: Normal Color, Dry. 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 She has been made aware that her cough is likely secondary to viral bronchitis. A prescription for Tessalon Perles will be sent to her pharmacy. She has been encouraged to drink plenty of fluids and get plenty of rest. She should follow- up with her primary doctor within 1 to 2 days for repeat evaluation. Discharge - Discharge Information Problems reviewed: Yes Clinical Impression/Diagnosis: Acute viral bronchitis Condition: Stable Disposition: HOME - Additional Discharge Information Prescriptions: Benzonatate [Tessalon Pearls -] 100 mg PO TID PRN #21 capsule PRN Reason: Cough - Follow up/Referral - Patient Discharge Instructions Patient Printed Discharge Instructions: DI for Acute Bronchitis Additional Instructions: Get plenty of rest and drink plenty of fluids. Take the cough tablets as prescribed and as needed for cough. Follow-up with your primary doctor within 1 to 2 days for repeat evaluation. - Post Discharge Activity Work/Back to School Note: Back to Work
== END 2019-08-23 01:58 | disposition home or self-care (01) ==
LOC: JER 22:20
DX: J20.9 Acute bronchitis, unspecified (principal); B97.89 Other viral agents as the cause of diseases classified elsewhere; I10 Essential (primary) hypertension; Z86.32 Personal history of gestational diabetes
CPT/HCPCS: 99281-25

== ENCOUNTER 2021-10-14 21:44 | Emergency (ER) | payer OTHER ==
[2021-10-14 21:58] VITALS: BMI 33.3
[2021-10-14] MEDS ORDERED: MAG HYDROX/AL HYDROX/SIMETH 30 ML UNIT-DOSE CUP PO ONE (22:33)
[2021-10-14] MEDS ORDERED: ONDANSETRON 4 MG/2 ML VIAL IVPUSH ONE (22:33)
[2021-10-14] MEDS ORDERED: SODIUM CHLORIDE 1,000 ML IV STA (22:33)
[2021-10-14] MEDS ORDERED: FAMOTIDINE 20 MG/50 ML IVPB 20 MG/50 ML MG IVPB ONE ×2 (22:33→22:38)
[2021-10-14] MEDS ORDERED: MAG HYDROX/AL HYDROX/SIMETH 30 ML UNIT-DOSE CUP ONE (22:37)
[2021-10-14] MEDS ORDERED: ONDANSETRON 4 MG/2 ML VIAL ONE (22:38)
[2021-10-14 22:54] LABS: BASO % 0.2 % (0-2.0); EOS % 0.1 % (0-4.5); HEMATOCRIT 43.1 % (32.4-45.2); HEMOGLOBIN 14.7 GM/dL (10.7-15.3); LYMPH % 6.1 % (8-40); MCHC 34.2 g/dl (32.0-36.0); MEAN CELL VOLUME 81.9 fl (80-96); MEAN PLT VOLUME 8.9 fl (7.5-11.1); MONO % 3.6 % (3.8-10.2); PLATELET COUNT 250 10^3/uL (134-434); RBC 5.27 M/mm3 (3.60-5.2); RDW 13.5 % (11.6-15.6); WHITE BLOOD COUNT 13.7 K/mm3 (4.0-10.0)
[2021-10-14 23:07] LABS: CALCIUM 9.2 mg/dL (8.5-10.1)
[2021-10-14 23:08] LABS: ALBUMIN 4.5 g/dl (3.4-5.0); BLOOD UREA NITROGEN 14.2 mg/dL (7-18)
[2021-10-14 23:10] LABS: CREATININE 0.8 mg/dL (0.55-1.3)
[2021-10-14 23:12] LABS: BILIRUBIN,TOTAL 0.6 mg/dL (0.2-1); TOT PROT 8.1 g/dl (6.4-8.2)
[2021-10-15] MEDS ORDERED: LACTATED RINGERS SOLUTION 1000 ML INFUS.BAG IV ONE (00:30)
[2021-10-15] MEDS ORDERED: ACETAMINOPHEN 1000 MG/100 ML BAG IVPB ONE (00:47)
[2021-10-15] MEDS ORDERED: ACETAMINOPHEN INJECTION 100 ML IVPB ONE (01:00)
[2021-10-15 01:25] LABS: EPI CELLS 28 /uL (0-25.1); HYALINE CASTS 4 /uL (0-3.1); PH,URINE 5.5 (5.0-8.0); URINE APPEARANCE CLOUDY; URINE BACTERIA 545 /uL (0-1359); URINE BILIRUBIN NEGATIVE (NEGATIVE); URINE COLOR DK YELLOW; URINE GLUCOSE (UA) NEGATIVE (NEGATIVE); URINE KETONE 3+ (NEGATIVE); URINE LEUK ESTERASE NEGATIVE (NEGATIVE); URINE NITRITE NEGATIVE (NEGATIVE); URINE PROTEIN TRACE (NEGATIVE); URINE RBC 11 /uL (0-23.9); URINE UROBILINOGEN 0.2 mg/dL (0.2-1.0); URINE WBC 21 /uL (0-25.8)
[2021-10-15 01:46] VITALS: BP 95/48; PULSE 67; TEMP 98.2
== END 2021-10-15 02:14 | disposition home or self-care (01) ==
LOC: JER 21:44
PROC: 3E0333Z Introduction of Anti-inflammatory into Peripheral Vein, Percutaneous Approach (ICD-10-PCS; principal; 2021-10-14)
PROC: 3E033GC Introduction of Other Therapeutic Substance into Peripheral Vein, Percutaneous Approach (ICD-10-PCS; 2021-10-14)
PROC: 3E033GC Introduction of Other Therapeutic Substance into Peripheral Vein, Percutaneous Approach (ICD-10-PCS; 2021-10-14)
PROC: 3E0337Z Introduction of Electrolytic and Water Balance Substance into Peripheral Vein, Percutaneous Approach (ICD-10-PCS; 2021-10-14)
DX: R11.2 Nausea with vomiting, unspecified (principal); R19.7 Diarrhea, unspecified
CPT/HCPCS: 36415; 80053; 81003; 83690; 84703; 85025; 87086; 93005; 93010; 99284-25

== ENCOUNTER 2021-12-03 12:31 | Emergency (ER) | payer OTHER ==
[2021-12-03 12:49] VITALS: BP 105/71; PULSE 90; TEMP 98.1; BMI 32.0
== END 2021-12-03 14:35 | disposition home or self-care (01) ==
LOC: JERFT 12:31
DX: H60.91 Unspecified otitis externa, right ear (principal); R07.0 Pain in throat; R09.81 Nasal congestion
CPT/HCPCS: 87651; 99283-25

== ENCOUNTER 2022-02-05 16:49 | Emergency (ER) | payer OTHER ==
[2022-02-05 17:18] VITALS: BP 114/73; PULSE 98; TEMP 99.1; BMI 32.9
[2022-02-05] MEDS ORDERED: ACETAMINOPHEN 500 MG TABLET (FP) PO ONE (18:43)
[2022-02-05] MEDS ORDERED: IBUPROFEN 600 MG TABLET (FP) PO ONE ×2 (18:43)
[2022-02-05] MEDS ORDERED: ACETAMINOPHEN 325 MG TABLET (FP) ONE (18:44)
== END 2022-02-05 19:32 | disposition left against medical advice (07) ==
LOC: JERFT 16:49 → JER 16:49 → JERFT 19:32
DX: R05.1 Acute cough (principal)
CPT/HCPCS: 99281-25

== ENCOUNTER 2022-02-13 22:19 | Emergency (ER) | payer OTHER ==
[2022-02-13 22:31] VITALS: BMI 32.9
[2022-02-14 00:43] LABS: BASO % 0.1 % (0-2.0); EOS % 2.9 % (0-4.5); HEMATOCRIT 36.2 % (32.4-45.2); HEMOGLOBIN 12.2 GM/dL (10.7-15.3); LYMPH % 38.2 % (8-40); MCH 28.3 pg (25.7-33.7); MCHC 33.8 g/dl (32.0-36.0); MEAN CELL VOLUME 83.8 fl (80-96); MEAN PLT VOLUME 8.6 fl (7.5-11.1); MONO % 7.4 % (3.8-10.2); NEUT % 51.4 % (42.8-82.8); PLATELET COUNT 294 10^3/uL (134-434); RBC 4.32 M/mm3 (3.60-5.2); RDW 12.8 % (11.6-15.6); WHITE BLOOD COUNT 11.4 K/mm3 (4.0-10.0)
[2022-02-14 01:01] LABS: CALCIUM 9.1 mg/dL (8.5-10.1)
[2022-02-14 01:02] LABS: ALBUMIN 3.6 g/dl (3.4-5.0); BLOOD UREA NITROGEN 18.3 mg/dL (7-18)
[2022-02-14 01:05] LABS: CREATININE 0.8 mg/dL (0.55-1.3)
[2022-02-14 01:07] LABS: BILIRUBIN,TOTAL 0.2 mg/dL (0.2-1); TOT PROT 7.1 g/dl (6.4-8.2)
[2022-02-14] MEDS ORDERED: DEXAMETHASONE SOD PHOSPHATE 10 MG/1 ML VIAL IVPUSH ONE (02:47)
[2022-02-14] MEDS ORDERED: ALBUTEROL SO4 2.5/IPRATROPIUM 0.5 INH SOL 3 ML VIAL.NEB. NEB ONE ×2 (02:47→02:57)
[2022-02-14] MEDS ORDERED: DEXAMETHASONE SOD PHOSPHATE 10 MG/1 ML VIAL ONE (02:57)
[2022-02-14 03:31] VITALS: BP 119/72; PULSE 77; TEMP 97.2
== END 2022-02-14 03:31 | disposition home or self-care (01) ==
LOC: JER 22:19
PROC: 3E0F7GC Introduction of Other Therapeutic Substance into Respiratory Tract, Via Natural or Artificial Opening (ICD-10-PCS; principal; 2022-02-13)
PROC: 3E0333Z Introduction of Anti-inflammatory into Peripheral Vein, Percutaneous Approach (ICD-10-PCS; 2022-02-13)
DX: R05.1 Acute cough (principal); R07.9 Chest pain, unspecified
CPT/HCPCS: 36415; 71046-TC-FY; 71275-TC; 80053; 84484; 84703; 85025; 85379; 93005; 93010; 99285-25; J1100; Q9967